=== PATIENT | male | born 1960 | race Caucasian/White ===

== ENCOUNTER 2018-05-25 15:27 | Emergency (ER) | payer BC ==
[2018-05-25] MEDS ORDERED: Sodium Chloride 0.9% 10 ML Syringe FLUSH PRN (15:57)
[2018-05-25] MEDS ORDERED: guaiFENesin 600 MG Tab.ER PO ONE (15:57)
[2018-05-25] MEDS ORDERED: Albuterol 0.083% 2.5 MG/3 ML Neb Soln NEB ONE (15:57)
--- NOTE | 2018-05-25 16:13 | EDM.PDOC ---
ED HPI GENERAL MEDICAL PROBLEM - General Chief Complaint: Respiratory Problem Stated Complaint: SOB/WEAKNESS Time Seen by Provider: 05/25/18 15:39 Source of Information: Reports: Patient History Limitations: Reports: No Limitations - History of Present Illness INITIAL COMMENTS - FREE TEXT/NARRATIVE: Patient is a 57-year-old male with a history of COPD and diabetes who presents to the ED complaining of shortness of breath and generalized weakness. States the SOB is chronic with no significant change. He has felt weak for the last 3 weeks. 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 Has been using his albuterol inhaler. He is on a steroid inhaler but stopped using since it causes urinary retention. He is chronically short of breath with exertion. He's continues to smoke with no plans of stopping. He has not taken any of his blood pressure this morning. He has no history of heart disease. No history of hypercholesteremia. He has had a stress test 2 weeks ago per patient with no concerning findings. He is supposed to schedule appointment with a corporate intern for further evaluation. He denies any increased weight, PND, orthopnea, or increased swelling to his lower extremities, fever, chest pain, dizziness, palpitations, or any additional complaints. - Related Data Allergies Allergy/AdvReac Type Severity Reaction Status Date / Time No Known Allergies Allergy Verified 05/25/18 15:40 Home Meds: Home Meds Albuterol [Proventil] 1 dose NEB QID 05/25/18 [History] Albuterol [Ventolin HFA] 1 - 2 puff NEB Q4HR PRN 05/25/18 [History] Amoxicillin 500 mg PO BID 05/25/18 [History] Budesonide/Formoterol [Symbicort 160-4.5 MCG] 2 puff INH BID #1 inhaler [Rx] Clotrimazole [Mycelex] 10 mg PO 5XDAY 05/25/18 [History] Dulaglutide [Trulicity] 0.5 ml INJECT WEEKLY 05/25/18 [History] Esomeprazole Mag/Glycerin [Esomep-Ezs Kit] 20 mg PO DAILY 05/25/18 [History] Fluconazole 150 mg PO ONETIME 05/25/18 [History] Lisinopril [Prinivil] 20 mg PO DAILY 05/25/18 [History] metFORMIN [Glucophage] 500 mg PO BEDTIME 05/25/18 [History] Past Medical History Respiratory History: Reports: COPD Musculoskeletal History: Reports: Other (See Below) Other Musculoskeletal History: left low back pain and feels like he has a knot there-did fall about 6 weeks ago Social & Family History - Tobacco Use Smoking Status *Q: Current Every Day Smoker Years of Tobacco use: 40 Packs/Tins Daily: 2 ED ROS GENERAL - Review of Systems Review Of Systems: ROS reveals no pertinent complaints other than HPI. ED EXAM, GENERAL - Physical Exam Exam: See Below Exam Limited By: No Limitations General Appearance: Alert, WD/WN, No Apparent Distress Eye Exam: Bilateral Eye: Normal Inspection Ears: Hearing Grossly Normal Nose: Normal Inspection Throat/Mouth: Normal Oropharynx, Normal Voice, No Airway Compromise Head: Atraumatic, Normocephalic Neck: Normal Inspection, Supple Respiratory/Chest: No Respiratory Distress, No Accessory Muscle Use, Chest Non- Tender, Wheezing (With rhonchi throughout. ) Cardiovascular: Normal Peripheral Pulses, Regular Rate, Rhythm, No Murmur Peripheral Pulses: 2+: Radial (L), Radial (R) GI/Abdominal: Normal Bowel Sounds, Soft, Non-Tender, No Organomegaly, No Distention Back Exam: Normal Inspection Extremities: Normal Inspection, Normal Range of Motion, Non-Tender, No Pedal Edema Neurological: Alert, Oriented, CN II-XII Intact, Normal Cognition, No Motor/ Sensory Deficits Psychiatric: Normal Affect, Normal Mood Skin Exam: Warm, Dry, Intact, Normal Color, No Rash Course - Vital Signs Last Recorded V/S: Last Vital Signs Temp 98.1 F 05/25/18 15:35 Pulse 96 05/25/18 15:35 Resp 20 05/25/18 15:35 BP 160/104 H 05/25/18 15:35 Pulse Ox 96 05/25/18 16:23 - Orders/Labs/Meds Orders: Active Orders 24 hr Category Date Time Status Peripheral IV Care [RC] . DIRECTED Care 05/25/18 15:57 Active RT Aerosol Therapy [RC] ASDIRECTED Care 05/25/18 15:57 Active Chest 2V [CR] Stat Exams 05/25/18 15:56 Taken Peripheral IV Insertion Adult [OM.PC] Routine Oth 05/25/18 15:57 Ordered EKG 12 Lead [EK] Stat Ther 05/25/18 17:14 Ordered Labs: Laboratory Tests 05/25/18 05/25/18 05/25/18 Range/Units 16:11 16:11 16:11 WBC 7.43 (4.23-9.07) K/mm3 RBC 5.74 (4.63-6.08) M/mm3 Hgb 16.9 (13.7-17.5) gm/L Hct 50.6 (40.1-51.0) % MCV 88.2 (79.0-92.2) fl MCH 29.4 (25.7-32.2) pg MCHC 33.4 (32.2-35.5) g/dl RDW Std Deviation 43.2 (35.1-43.9) fL Plt Count 294 (163-337) K/mm3 MPV 9.9 (9.4-12.3) fl Neutrophils % (Manual) 64 H (40-60) % Band Neutrophils % 0 (0-10) % Lymphocytes % (Manual) 26 (20-40) % Atypical Lymphs % 0 % Monocytes % (Manual) 2 (2-10) % Eosinophils % (Manual) 8 H (0.8-7.0) % Basophils % (Manual) 0 L (0.2-1.2) Platelet Estimate Adequate RBC Morph Comment Normal Sodium 140 (136-145) mEq/L Potassium 4.4 (3.5-5.1) mEq/L Chloride 106 (98-107) mEq/L Carbon Dioxide 25 (21-32) mEq/L Anion Gap 13.4 (5-15) BUN 19 H (7-18) mg/dL Creatinine 0.8 (0.7-1.3) mg/dL Est Cr Clr Drug Dosing 109.81 mL/min Estimated GFR (MDRD) > 60 (>60) mL/min BUN/Creatinine Ratio 23.8 H (14-18) Glucose 114 H (74-106) mg/dL Lactic Acid 1.2 (0.4-2.0) mmol/L Calcium 8.9 (8.5-10.1) mg/dL Magnesium 2.2 (1.8-2.4) mg/dl Total Bilirubin 0.2 (0.2-1.0) mg/dL AST 14 L (15-37) U/L ALT 37 (16-63) U/L Alkaline Phosphatase 84 (46-116) U/L Troponin I < 0.017 (0.00-0.056) ng/mL C-Reactive Protein 0.5 (<1.0) mg/dL NT-Pro-B Natriuret Pep (0-125) pg/mL Total Protein 6.8 (6.4-8.2) g/dl Albumin 3.6 (3.4-5.0) g/dl Globulin 3.2 gm/dL Albumin/Globulin Ratio 1.1 (1-2) Mycoplasma pneumon IgM Negative (NEGATIVE) 05/25/18 Range/Units 16:11 WBC (4.23-9.07) K/mm3 RBC (4.63-6.08) M/mm3 Hgb (13.7-17.5) gm/L Hct (40.1-51.0) % MCV (79.0-92.2) fl MCH (25.7-32.2) pg MCHC (32.2-35.5) g/dl RDW Std Deviation (35.1-43.9) fL Plt Count (163-337) K/mm3 MPV (9.4-12.3) fl Neutrophils % (Manual) (40-60) % Band Neutrophils % (0-10) % Lymphocytes % (Manual) (20-40) % Atypical Lymphs % % Monocytes % (Manual) (2-10) % Eosinophils % (Manual) (0.8-7.0) % Basophils % (Manual) (0.2-1.2) Platelet Estimate RBC Morph Comment Sodium (136-145) mEq/L Potassium (3.5-5.1) mEq/L Chloride (98-107) mEq/L Carbon Dioxide (21-32) mEq/L Anion Gap (5-15) BUN (7-18) mg/dL Creatinine (0.7-1.3) mg/dL Est Cr Clr Drug Dosing mL/min Estimated GFR (MDRD) (>60) mL/min BUN/Creatinine Ratio (14-18) Glucose (74-106) mg/dL Lactic Acid (0.4-2.0) mmol/L Calcium (8.5-10.1) mg/dL Magnesium (1.8-2.4) mg/dl Total Bilirubin (0.2-1.0) mg/dL AST (15-37) U/L ALT (16-63) U/L Alkaline Phosphatase (46-116) U/L Troponin I (0.00-0.056) ng/mL C-Reactive Protein (<1.0) mg/dL NT-Pro-B Natriuret Pep 15 (0-125) pg/mL Total Protein (6.4-8.2) g/dl Albumin (3.4-5.0) g/dl Globulin gm/dL Albumin/Globulin Ratio (1-2) Mycoplasma pneumon IgM (NEGATIVE) Meds: Medications Discontinued Medications Generic Name Dose Route Start Last Admin Trade Name Freq PRN Reason Stop Dose Admin Albuterol 2.5 mg 05/25/18 15:57 05/25/18 16:22 Proventil Neb Soln NEB 05/25/18 15:58 2.5 mg ONETIME ONE Administration Guaifenesin 1,200 mg 05/25/18 15:57 05/25/18 16:14 Mucinex PO 05/25/18 15:58 1,200 mg ONETIME ONE Administration Sodium Chloride 10 ml 05/25/18 15:57 05/25/18 16:14 Saline Flush FLUSH 10 ml ASDIRECTED PRN Administration Keep Vein Open - Re-Assessments/Exams Free Text/Narrative Re-Assessment/Exam: Vital signs on examination 160/104, heart rate 98, SPO2 94% on room air. Patient complaining of shortness of breath, chest congestion, with generalized body aches, and weakness. Has a history of COPD and has not been compliant with his respiratory medications along with his hypertension med. In addition he was on amoxicillin one week ago. All his symptoms have been going on for the past 3-4 weeks. IV will be established. Albuterol neb treatment 2.5 mg ordered 1. Mucinex 1200mg PO by mouth ordered as well. Initial labs and studies include: CBC, chem 14, CRP, influenza screen, magnesium , mycoplasma, proBNP, influenza screen, and chest x-ray two-view. Reviewed Lexiscan stress test obtained 05/03/2017. Impression: Negative Lexiscan stress test ECG for ischemia. Abnormal blood pressure noted. Cardiolite cardiac exam impression: Presumed artifact as noted above. Low ejection fraction of 46%. No reversible ischemia still to be present. EKG obtained today indicated sinus rhythm with normal P axis at a rate of 99. WI interval 176. QTc 417. Complete to the slight elevation of ST segment. With review of the recent Lexiscan test consistent with those findings. Labs reviewed: CBC was essentially normal. CMP was essentially normal. Troponin normal. CRP 0.5. Mycoplasma negative. Influenza screen was negative. Lactic acid normal. BNP WNL. Chest x-ray revealed no acute findings. Compared with previous x-ray. Final interpretation is pending. Reviewed with Dr. Giordano. Patient states symptoms are improving after the administration of the neb treatment. Discussed results of labs, chest x-ray, EKG with the patient. Do not clear indication why the patient has this generalized malaise. All the symptoms been going on for the past month. He still states he has intermittent blurred vision. Has a history of stigmatism. Was recently evaluated by medical cash poster with nothing noted wrong with his eyes. Visual acuity test indicated R 20/30 and L 20 /40. Patient this is been unchanged since evaluated by the the medical cash poster. Patient has not been taking all his medications as prescribed. States he has not taken his lisinopril over the past 2 days. In addition has not been using his albuterol inhaler regularly as well. He just completed course of amoxicillin one week ago. Blood sugars are not significantly elevated. He stopped taking the anoro inhaler since he cannot urinate while taking. He was on symbicort prior but states he cannot fill his medications until next Monday when he gets paid. I will provide a prescription for symbicort. Will have the patient see his PCP this coming week for reevaluation. No antibiotic will be provided. Patient agreed with plan. Return precautions were discussed with the patient. Patient had no further questions or concerns. Departure - Departure Time of Disposition: 18:36 Disposition: Home, Self-Care 01 Condition: Good Clinical Impression: Malaise and fatigue, SOB (shortness of breath) - Discharge Information Prescriptions: Budesonide/Formoterol [Symbicort 160-4.5 MCG] 2 puff INH BID #1 inhaler Instructions: Chronic Obstructive Pulmonary Disease Exacerbation, [id number] , Shortness of Breath, Adult Referrals: Analia Velasco PA-C [Primary Care Provider] - Forms: ED Department Discharge Additional Instructions: Unclear what is causing your generalized malaise. He maybe related to you working excessive amount of hours at work. I suspect the shortness of breath is most likely precipitated by you not taking your stabilizing inhaler. You can discard the anoro and start taking symbicort 2 puffs twice a day along with albuterol inhaler until evaluated by PCP. I will not prescribe any antibiotic at this time. Chest x-ray did not reveal any findings concerning for infection. Continue taking all your other medications as prescribed. Please call and make an appointment on Monday to be evaluated by her PCP. Utilize Mucinex 600 mg twice a day. Push the fluids. Please return back to the ED if he developed any new or worsening symptoms. Please stop smoking. - My Orders Last 24 Hours: My Active Orders 05/25/18 15:56 Chest 2V [CR] Stat 05/25/18 15:57 Peripheral IV Care [RC] . DIRECTED RT Aerosol Therapy [RC] ASDIRECTED Peripheral IV Insertion Adult [OM.PC] Routine 05/25/18 17:14 EKG 12 Lead [EK] Stat - Assessment/Plan Last 24 Hours: My Active Orders 05/25/18 15:56 Chest 2V [CR] Stat 05/25/18 15:57 Peripheral IV Care [RC] . DIRECTED RT Aerosol Therapy [RC] ASDIRECTED Peripheral IV Insertion Adult [OM.PC] Routine 05/25/18 17:14 EKG 12 Lead [EK] Stat
--- NOTE | 2018-05-26 09:47 | CR ---
Chest: Two views of the chest were obtained. Comparison: Prior chest x-ray of 04/16/18. Old healed rib fractures are seen within the left seventh and eighth ribs. Small nodule which is compatible with granuloma is seen within the left base. Lungs show no acute parenchymal change. Bony structures show minimal degenerative change within the spine. Impression: 1. Incidental findings. Nothing acute is appreciated. Diagnostic code #2
== END 2018-05-25 18:53 | disposition home or self-care (01) ==
LOC: JD.ED 15:27
DX: R06.02 Shortness of breath (principal); R53.83 Other fatigue; R53.81 Other malaise; J44.9 Chronic obstructive pulmonary disease, unspecified; E11.9 Type 2 diabetes mellitus without complications; F17.210 Nicotine dependence, cigarettes, uncomplicated
CPT/HCPCS: 36415; 71046; 80053; 83605; 83735; 83880; 84484; 85007; 85027; 86140; 86738; 87804; 94640; 99284; A9270; 93010

== ENCOUNTER 2018-08-25 18:24 | Emergency (ER) | payer BC, MEDICAID ==
--- NOTE | 2018-08-25 18:55 | EDM.PDOC ---
ED HPI GENERAL MEDICAL PROBLEM - General Chief Complaint: Genitourinary Problem Stated Complaint: CATH PROBLEM Time Seen by Provider: 08/25/18 18:48 Source of Information: Reports: Patient History Limitations: Reports: No Limitations - History of Present Illness INITIAL COMMENTS - FREE TEXT/NARRATIVE: 58-year-old male presents to the ED with catheter related problems. He had to have a Choe catheter placed after he developed gross hematuria on August 16. Subsequently he has undergone multiple investigations in [place] where he resides. He had an 18-gauge Choe placed initially and then it was removed at time cystoscopy was performed and apparently some lesions were biopsied but the urologist did not feel that any of them were cancerous. He had a Choe reinserted in case he bled as he was leaving [place] to come back to [place] for work. Suggest that they may have been polyps. They recognize that he has a significant enlarged prostate which may be contributing to the bleeding. He placed him on antibiotics for 30 days and he still is on antibiotics. He states however that the catheter is causing pain particularly to the very end of his penis with intermittent purulent discharge. He placed all kinds of lubricants on the area to try and not allow the catheter to stick ordered here to the meatus. Also been applying Neosporin ointment which may be causing a mild allergic reaction. The urine in the drainage bag is been clear and blood free for days. He has follow-up appointment arranged for 30 days post cystoscopy. Of note antibiotic is not listed in his current med list. Onset: Gradual (He is having problems with the catheter for the last 7 days.) Onset Date: 08/18/18 Duration: Day(s):, Getting Worse Location: Reports: Other (Catheter problems with irritation at the end of the penis site) Quality: Reports: Ache ( the meatus. 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 He is currently on antibiotic therapy for prevention of infection a) Penis Pain Score (Numeric/FACES): 10 - Related Data Allergies Allergy/AdvReac Type Severity Reaction Status Date / Time No Known Allergies Allergy Verified 05/25/18 15:40 Home Meds: Home Meds Albuterol [Proventil] 1 dose NEB QID 05/25/18 [History] Albuterol [Ventolin HFA] 1 - 2 puff NEB Q4HR PRN 05/25/18 [History] Clotrimazole [Mycelex] 10 mg PO 5XDAY 05/25/18 [History] Dulaglutide [Trulicity] 0.5 ml INJECT WEEKLY 05/25/18 [History] Lisinopril [Prinivil] 20 mg PO DAILY 05/25/18 [History] metFORMIN [Glucophage] 500 mg PO BEDTIME 05/25/18 [History] Past Medical History Cardiovascular History: Reports: Hypertension Respiratory History: Reports: COPD Other Gastrointestinal History: retention r/t cocaine use Genitourinary History: Reports: BPH, Other (See Below) (Recent problems August 16 with gross hematuria. Exact cause of the bleeding is not yet declared. Patient has had urology intervention with) Musculoskeletal History: Reports: Other (See Below) Other Musculoskeletal History: left low back pain and feels like he has a knot there-did fall about 6 weeks ago Endocrine/Metabolic History: Reports: Diabetes, Type II (Controlled with trulicity and metformin.) Social & Family History - Tobacco Use Smoking Status *Q: Current Every Day Smoker Years of Tobacco use: 30 Packs/Tins Daily: 2 - Caffeine Use Caffeine Use: Reports: Coffee - Recreational Drug Use Recreational Drug Use: Yes Drug Use in Last 12 Months: Yes Recreational Drug Type: Reports: Cocaine Other Recreational Drug Type: sober for 9 mo - Living Situation & Occupation Living situation: Reports: Single Occupation: Employed ED ROS GENERAL - Review of Systems Review Of Systems: See Below Constitutional: Reports: Malaise, Fatigue, Decreased Appetite (Under good deal stress at present due to recent breakup with his common-law . He is here closing up their home and selling off the furniture). Denies: Fever, Chills HEENT: Reports: No Symptoms Respiratory: Reports: Shortness of Breath, Cough, Sputum (Every day smoker) Cardiovascular: Reports: Dyspnea on Exertion. Denies: Chest Pain ( brownish in color usually), Blood Pressure Problem, Claudication, Edema, Lightheadedness, Orthopnea Endocrine: Reports: Fatigue (Occasionally) GI/Abdominal: Reports: Other : Reports: Other (Currently having problems with indwelling Choe catheter was placed after cystoscopy was done around August 18 or .) Musculoskeletal: Reports: No Symptoms Skin: Reports: No Symptoms ED EXAM, RENAL/ - Physical Exam Exam: See Below Exam Limited By: No Limitations General Appearance: Alert, WD/WN, Moderate Distress Cardiovascular: Normal Peripheral Pulses, Regular Rate, Rhythm, No Edema, No Murmur, No Rub GI/Abdominal: Normal Bowel Sounds, Soft, Non-Tender, No Organomegaly, No Mass, Pelvis Stable (Male) Exam: Circumcised, Other (Indwelling Choe catheter with purulent material at the meatus. The meatus itself is somewhat scabbed and broken down due to localized infection.) Extremities: Normal Inspection, Normal Range of Motion, Non-Tender Neurological: Alert, Oriented, CN II-XII Intact, Normal Cognition, Normal Gait Psychiatric: Normal Affect, Anxious Skin Exam: Warm, Dry, Intact, Normal Color, No Rash Course - Vital Signs Last Recorded V/S: Last Vital Signs Temp 36.6 C 08/25/18 18:29 Pulse 120 H 08/25/18 18:29 Resp 16 08/25/18 18:29 BP 102/77 08/25/18 18: Pulse Ox 96 08/25/18 18:29 - Radiology Interpretation Free Text/Narrative:: 58-year-old male presents to the ED with problems with his Choe catheter. Choe catheter was placed on August 16 in [place] after he presented to the hospital with gross hematuria spontaneously. It was painless. He had cystoscopy about 3 days later and apparently biopsies were obtained but the urologist reported that he didn't believe that there was any form of cancer present. He believes his large prostate gland is the cause of the gross hematuria. At any rate he left the Choe catheter in place and states left him on antibiotics for 30 days he supposed to have the catheter removed on September 19. He states however the catheter is burning and causing tremendous amount of pain at the end of his penis. It's also losing purulent material. He has put extra lubricants on as well as Neosporin ointment to try and wear up the purulent discharge. This may in fact be part of the problem. They relate the urine is clear and he wants the catheter out. I see no reason at this time not to remove it. Therefore catheter will be removed. He will use bacitracin ointment to the end of his penis twice daily until it feels better. Advised that is likely going to burn quite significantly with voiding for the next 3 or 4 days to the urethra can heal. If he can void or urine once again becomes bloody while he is traveling back to [place] he is of course to see "medical care. He has plans to follow-up with the urologist on September 19. He has oral antibiotic that he will continue until finished. Departure - Departure Time of Disposition: 18:52 Disposition: Home, Self-Care 01 Condition: Fair Clinical Impression: Choe catheter problem Qualifiers: Encounter type: initial encounter Qualified Code(s): T83.9XXA - Unspecified complication of genitourinary prosthetic device, implant and graft, initial encounter - Discharge Information *PRESCRIPTION DRUG MONITORING PROGRAM REVIEWED*: Not Applicable *COPY OF PRESCRIPTION DRUG MONITORING REPORT IN PATIENT BRETT: Not Applicable Instructions: Indwelling Urinary Catheter Care, Adult Referrals: PCP,None [Ordering Only Provider] - Forms: ED Department Discharge Additional Instructions: Evaluation the emergency room today in regards to problems related to Choe catheter that is been in place since 16 August or at least replaced after cystoscopy was performed. He was advised leave the Choe catheter in place for 30 days better finding it too uncomfortable with irritation of the meatus or the end of the penis. The catheter is become adherent to the surrounding tissues and there is a low-grade infection at this area as well. In spite of putting antibiotic ointment on this area the irritation and infection persists. I agree with you that at this time the catheter is better off removed. Choe catheter was therefore removed. Continue oral antibiotics as previously prescribed by urologist. Placement bacitracin ointment to the end of the penis twice daily particularly at bedtime until the irritation and inflammation goes away which should be 3-4 days. If you are unable to void or urine becomes grossly bloody again you'll have to seek out medical services for catheter placement.
== END 2018-08-25 19:02 | disposition home or self-care (01) ==
LOC: JD.ED 18:24
DX: T83.511A Infection and inflammatory reaction due to indwelling urethral catheter, initial encounter (principal); J44.9 Chronic obstructive pulmonary disease, unspecified; E11.9 Type 2 diabetes mellitus without complications; F17.210 Nicotine dependence, cigarettes, uncomplicated; Z79.84 Long term (current) use of oral hypoglycemic drugs; Z79.899 Other long term (current) drug therapy
CPT/HCPCS: 99281; 99283